=== PATIENT | female | born 1980 | race Asian ===

== ENCOUNTER 2021-08-17 13:12 | Emergency (ER) | payer OTHER ==
[~2021-08-17] VITALS: Ht 162.6 cm; Wt 77.1 kg
[2021-08-17 13:41] VITALS: BP 129/90
--- NOTE | 2021-08-17 15:04 | NUR ---
Patient discharged with v/s stable. Written and verbal after care instructions given and explained. Patient verbalized understanding. Ambulatory with steady gait. All questions addressed prior to discharge. Advised to follow up with PMD.
--- NOTE | 2021-08-17 15:04 | NUR ---
no nursing interventions at this time
[2021-08-17 15:07] VITALS: BP 129/90
== END 2021-08-17 15:07 | disposition home or self-care (01) ==
LOC: MED 13:12
DX: R00.2 Palpitations (principal); Z20.822 Contact with and (suspected) exposure to COVID-19; J02.9 Acute pharyngitis, unspecified; R51.9 Headache, unspecified; M79.18 Myalgia, other site
CPT/HCPCS: 81002; 81025; 93005; 99284